=== PATIENT | male | born 1945 | race Caucasian/White ===

== ENCOUNTER 2023-07-29 12:24 | Emergency (ER) | payer OTHER ==
[~2023-07-29] VITALS: Ht 157.5 cm; Wt 74.8 kg
[~2023-07-29 12:24] MED LIST: CARI350T27; CITA-77; CLOP75TA28; ENAL1TAB47; EZET-59; HYDR-2035; TRIA50CA40; [UNRECOGNIZED DRUG - OTHER]
[2023-07-29] MEDS ORDERED: CEPH500C PO (16:29)
[2023-07-29] MEDS ORDERED: SILV1CRE82 TOP (16:29)
[2023-07-29 16:56] VITALS: BP 155/86; PULSE 95; RESP 18; TEMP 98.4; O2SAT 94
== END 2023-07-29 17:00 | disposition home or self-care (01) ==
LOC: ER 12:24
DX: S08.0XXA Avulsion of scalp, initial encounter (principal); C44.40 Unspecified malignant neoplasm of skin of scalp and neck; C79.9 Secondary malignant neoplasm of unspecified site; Z79.899 Other long term (current) drug therapy; X58.XXXA Exposure to other specified factors, initial encounter; Y93.89 Activity, other specified; Y92.89 Other specified places as the place of occurrence of the external cause; Y99.8 Other external cause status
CPT/HCPCS: 70450

== ENCOUNTER 2024-03-02 14:29 | Emergency (ER) | payer OTHER ==
[~2024-03-02] VITALS: Ht 157.5 cm; Wt 60.9 kg
[~2024-03-02 14:29] MED LIST changes: +CARI-578; -CARI350T27; +CEPH500C PO; +SILV1CRE82 TOP
[2024-03-02] MEDS: HYDROcodone-ACET 10/325MG TAB PO ONE (15:33)
[2024-03-02 15:42] LABS: Basophils # (auto) 0.1 10 ^3/uL (0-0.2); Basophils % (auto) 1.3 % (0.0-2.0); Eosinophils # (auto) 0.3 10 ^3/uL (0-0.8); Eosinophils % (auto) 3.8 % (0.0-7.0); Hematocrit 38.3 % (41.0-53.0); Hemoglobin 12.4 g/dL (13.5-17.5); Lymphocytes # (auto) 1.5 10 ^3/uL (0.4-5.4); Lymphocytes % (auto) 18.7 % (10.0-50.0); Mean Corpuscular Hgb Conc. 32.5 g/dL (32.0-36.0); Mean Corpuscular Volume 95.2 fL (80.0-100.0); Monocytes # (auto) 0.6 10 ^3/uL (0-1.3); Monocytes % (auto) 8.1 % (0.0-12.0); Neutrophils # (auto) 5.4 10 ^3/uL (1.6-8.6); Neutrophils % (auto) 68.1 % (37.0-80.0); Nucleated Red Blood Cells % 0.1 %; Red Blood Cells 4.02 10^6/uL (4.5-5.90); Red Cell Distribution Width 14.2 % (11.8-14.3); White Blood Cell 7.9 10^3/uL (4.4-10.8)
[2024-03-02 16:03] LABS: Alanine Aminotransferase 22 U/L (7-40); Albumin 3.9 g/dL (3.2-4.8); Alkaline Phosphatase 106 U/L (46-116); Anion Gap 8 (5-15); Aspartate Aminotransferase 25 U/L (13-40); BUN/Creatinine Ratio 10.9 (10.0-20.0); Bilirubin, Total 0.7 mg/dL (0.2-1.0); Blood Urea Nitrogen 15 mg/dL (9-23); Calcium 9.2 mg/dL (8.7-10.4); Carbon Dioxide 24 mmol/L (20-30); Chloride 110 mmol/L (98-107); Glucose 105 mg/dL (74-106); Lipase 82 U/L (12-53); Sodium 142 mmol/L (136-145)
[2024-03-02] MEDS: SODIUM CHLORIDE 0.9% 1,000 ML IV ONE ×2 (18:30→20:15)
[2024-03-02] MEDS: CLINDAMYCIN 300MG IV 50 ML IV ONE (21:00)
[2024-03-02 23:34] VITALS: BP 102/64; PULSE 87; RESP 18; TEMP 97.6; O2SAT 96
== END 2024-03-02 23:33 | disposition home or self-care (01) ==
LOC: ER 14:29
DX: C44.40 Unspecified malignant neoplasm of skin of scalp and neck (principal); R29.6 Repeated falls; I10 Essential (primary) hypertension; F41.9 Anxiety disorder, unspecified; I25.10 Atherosclerotic heart disease of native coronary artery without angina pectoris; E78.5 Hyperlipidemia, unspecified; I25.2 Old myocardial infarction
CPT/HCPCS: 36415; 70450; 74176; 80053; 83605; 83690; 83880; 84484; 85025; 93005; 96361; 96365; 99285; J3490; J7030

== ENCOUNTER 2024-04-01 11:13 | Emergency (ER) | payer OTHER ==
[~2024-04-01] VITALS: Ht 157.5 cm; Wt 59.1 kg
[2024-04-01 13:05] LABS: Basophils # (auto) 0 10 ^3/uL (0-0.2); Basophils % (auto) 0.4 % (0.0-2.0); Eosinophils # (auto) 0.2 10 ^3/uL (0-0.8); Eosinophils % (auto) 2.1 % (0.0-7.0); Hematocrit 34.6 % (41.0-53.0); Hemoglobin 11.6 g/dL (13.5-17.5); Lymphocytes # (auto) 0.8 10 ^3/uL (0.4-5.4); Lymphocytes % (auto) 9.8 % (10.0-50.0); Mean Corpuscular Hemoglobin 32.6 pg (28.0-32.0); Mean Corpuscular Hgb Conc. 33.4 g/dL (32.0-36.0); Mean Corpuscular Volume 97.6 fL (80.0-100.0); Monocytes # (auto) 0.6 10 ^3/uL (0-1.3); Monocytes % (auto) 7.4 % (0.0-12.0); Neutrophils # (auto) 6.3 10 ^3/uL (1.6-8.6); Neutrophils % (auto) 80.3 % (37.0-80.0); Nucleated Red Blood Cells % 0.1 %; Red Blood Cells 3.55 10^6/uL (4.5-5.90); Red Cell Distribution Width 16.2 % (11.8-14.3); White Blood Cell 7.9 10^3/uL (4.4-10.8)
[2024-04-01 13:17] LABS: Chloride 112 mmol/L (98-107); Potassium 4.1 mmol/L (3.5-5.1); Sodium 143 mmol/L (136-145)
[2024-04-01 13:18] LABS: Anion Gap 7 (5-15); Carbon Dioxide 24 mmol/L (20-30)
[2024-04-01 13:19] LABS: Calcium 9.6 mg/dL (8.5-10.1)
[2024-04-01 13:23] LABS: Glucose 86 mg/dL (74-106)
[2024-04-01 13:24] LABS: BUN/Creatinine Ratio 11.7 (10.0-20.0); Blood Urea Nitrogen 13 mg/dL (9-23)
[2024-04-01 15:42] VITALS: BP 151/84; PULSE 110; RESP 17; TEMP 97.7; O2SAT 96
== END 2024-04-01 15:44 | disposition home or self-care (01) ==
LOC: ER 11:13
DX: C44.40 Unspecified malignant neoplasm of skin of scalp and neck (principal); C79.9 Secondary malignant neoplasm of unspecified site; R55 Syncope and collapse; I10 Essential (primary) hypertension; E78.5 Hyperlipidemia, unspecified; I25.10 Atherosclerotic heart disease of native coronary artery without angina pectoris; I25.2 Old myocardial infarction; F41.9 Anxiety disorder, unspecified; Z86.73 Personal history of transient ischemic attack (TIA), and cerebral infarction without residual deficits; Z98.890 Other specified postprocedural states; Z88.8 Allergy status to other drugs, medicaments and biological substances; Z79.899 Other long term (current) drug therapy
CPT/HCPCS: 36415; 70450; 73030; 80048; 85025; 93005

== ENCOUNTER 2024-04-28 01:06 | Emergency (ER) | payer OTHER ==
[~2024-04-28] VITALS: Ht 157.5 cm; Wt 72.3 kg
[2024-04-28 01:45] VITALS: BP 120/87; PULSE 83; RESP 17; O2SAT 97
== END 2024-04-28 02:09 | disposition left against medical advice (07) ==
LOC: ER 01:06
DX: C76.0 Malignant neoplasm of head, face and neck (principal); Z53.21 Procedure and treatment not carried out due to patient leaving prior to being seen by health care provider

== ENCOUNTER 2024-07-11 11:05 | Emergency (ER) | payer OTHER ==
[~2024-07-11] VITALS: Ht 157.5 cm; Wt 53.9 kg
[2024-07-11 12:52] VITALS: BP 139/67; PULSE 68; RESP 17; TEMP 98.7; O2SAT 96
[2024-07-11] MEDS: HYDROcodone-ACET 5/325MG TAB PO ONE (12:54)
== END 2024-07-11 12:54 | disposition home or self-care (01) ==
LOC: ER 11:16
DX: C44.42 Squamous cell carcinoma of skin of scalp and neck (principal); I10 Essential (primary) hypertension; E78.5 Hyperlipidemia, unspecified; Z86.73 Personal history of transient ischemic attack (TIA), and cerebral infarction without residual deficits; Z88.6 Allergy status to analgesic agent; Z90.49 Acquired absence of other specified parts of digestive tract